=== PATIENT | male | born 1980 | race Caucasian/White ===

== ENCOUNTER 2025-03-14 06:39 | Emergency (ER) | payer SELFPAY ==
[~2025-03-14] VITALS: Ht 175.3 cm; Wt 76.0 kg
[2025-03-14 06:42] VITALS: BP 130/88; TEMP 97.7; O2SAT 99
== END 2025-03-14 07:51 | disposition home or self-care (01) ==
LOC: M ED 06:39
DX: Z02.83 Encounter for blood-alcohol and blood-drug test (principal)